=== PATIENT | male | born 1980 | race Asian ===

== ENCOUNTER 2017-03-08 09:37 | Inpatient (IN) | payer OTHER ==
[~2017-03-08] VITALS: Ht 172.7 cm; Wt 68.3 kg
[2017-03-08 10:37] LABS: EOSINOPHIL (%) 1.8 % (0-5); EOSINOPHIL COUNT 0.2 K/uL (0-0.3); HEMATOCRIT 47.4 % (38.0-50.0); IMMATURE GRANULOCYTE (%) 0.2 % (0.0-0.7); INSTRUMENT ABS NEUTROPHIL CT 5.5 K/uL; MCH 31.7 PG (29.0-34.0); MCHC 34.4 G/DL (30.0-36.0); MCV 92.2 FL (86-99); MEAN PLAT.VOLUME 9.2 uM^3 (9.0-12.4); MONOCYTE (%) 6.5 % (3-12); MONOCYTE COUNT 0.5 K/uL (0-0.8); NEUTROPHIL (%) 66.8 % (45-76); NEUTROPHIL COUNT 5.5 K/uL (1.8-6.4); PLATELET COUNT 248 K/uL (156-360); RBC DIS.WIDTH-SD 40.7 % (39-53); RED BLOOD COUNT 5.14 M/uL (4.00-5.50); WHITE BLOOD COUNT 8.2 K/uL (4.1-10.2)
[2017-03-08 10:49] LABS: CHLORIDE 108 mEq/L (99-109); SODIUM 141 mEq/L (136-147)
[2017-03-08 10:51] LABS: GLUCOSE 106 mg/dL (70-99)
[2017-03-08 10:52] LABS: ANION GAP 7 MEQ/L (2-14)
[2017-03-08 10:54] LABS: GFR ESTIMATE (CALCULATED) > 59 mL/min/; SERUM ETHYL ALCOHOL < 10 mg/dL
[2017-03-08 10:56] LABS: UREA NITROGEN (BUN) 10 mg/dL (9-23)
[2017-03-08 10:58] LABS: SALICYLATE < 5.0 MG/DL (15-30)
[2017-03-08 11:43] LABS: ADD MIUA? YES; BILIRUBIN NEGATIVE; BLOOD NEGATIVE; COLOR YELLOW ((YELLOW)); GLUCOSE (STRIP) NEGATIVE; KETONES NEGATIVE; LEUKOCYTES NEGATIVE; NITRITE NEGATIVE; PROTEIN (STRIP) NEGATIVE; SPECIFIC GRAVITY 1.016 (1.000-1.030); UROBILINOGEN 0.2 MG/DL (0.2-1.0)
[2017-03-08 11:58] LABS: BACTERIA NONE SEEN /HPF; EPITHELIAL CELLS NONE SEEN /HPF; MUCUS NONE SEEN /LPF; RED BLOOD CELLS NONE SEEN /HPF (0-5); UCUL ADDED? NO; WHITE BLOOD CELLS 0-5 /HPF (0-5)
[2017-03-08 12:11] LABS: AMPHETAMINE NEGATIVE (500 ng/mL); BARBITURATES NEGATIVE (200 ng/mL); BENZODIAZEPINES NEGATIVE (150 ng/mL); COCAINE NEGATIVE (150 ng/mL); INTERNAL CONTROLS VALID? YES; METHADONE NEGATIVE (200 ng/mL); METHAMPHETAMINE NEGATIVE (500 ng/mL); OPIATES (MORPHINE) NEGATIVE (100 ng/mL); OXYCODONE NEGATIVE (100 ng/mL); PHENCYCLIDINE NEGATIVE (25 ng/mL); PROPOXYPHENE NEGATIVE (300 ng/mL); THC CANNABINOIDS NEGATIVE (50 ng/mL); TRICYCLIC ANTIDEPRESSANTS NEGATIVE (300 ng/mL)
[2017-03-08 16:01] VITALS: BP 122/88
[2017-03-08] MEDS ORDERED: COGENTIN1 MG PO (17:23)
[2017-03-08] MEDS ORDERED: TRAZODONE HCL50 MG PO (17:23)
[2017-03-08] MEDS ORDERED: GEODON60 MG PO (17:24)
[2017-03-09 07:30] VITALS: BP 133/84
[2017-03-09 16:05] VITALS: BP 119/64
[2017-03-10 07:44] VITALS: BP 122/80
[2017-03-10 15:27] VITALS: BP 141/91
[2017-03-11 07:53] VITALS: BP 116/79
[2017-03-11 15:51] VITALS: BP 138/90
[2017-03-12 07:46] VITALS: BP 140/83
[2017-03-12 15:55] VITALS: BP 122/76
[2017-03-13 09:28] VITALS: BP 121/78
[2017-03-13] MEDS ORDERED: ZIPRASIDONE HCL80 MG PO (09:59)
== END 2017-03-13 12:07 | disposition home or self-care (01) | DRG 885 ==
LOC: EME 09:37 → 1WEST 12:15 → EDOF 12:15 → 1WEST 15:47 → ENRESERV 15:47 → 1WEST 03-13 12:07
PROVIDERS: Emergency Medicine
DX: F20.9 Schizophrenia, unspecified (principal); R45.851 Suicidal ideations; F22 Delusional disorders; F32.9 Major depressive disorder, single episode, unspecified; I10 Essential (primary) hypertension; F41.9 Anxiety disorder, unspecified; E66.3 Overweight
CPT/HCPCS: 80048; 81003; 85025; 90839; 93005; 97165 GO; 99281; 99284; G0480